=== PATIENT | female | born 1945 | race Caucasian/White ===

== ENCOUNTER 2016-06-26 12:42 | Inpatient (IN) | payer OTHER ==
[~2016-06-26] VITALS: Ht 160 cm; Wt 65.9 kg
[~2016-06-26 12:42] MED LIST: ASPIRIN81 M1; B-121000 MC2 PO; CARDIA XT; CARDIZEM CD,CA240 MG PO; CLOPIDOGREL75 MG PO; CYANOCOBAL1000 MCG/2 IM; DAILY VALUE1 EACH PO; FISH OIL CONC1 EACH PO; FOLIC ACID0.4 MG PO; MVI; PLAVIX75 MG PO; RED YEAST RICE600 M1 PO; RENOVA 0.02% CR40 GM TP; RESVERATROL50 MG PO; ST. JOSEPH ASPI81 MG PO; TARCEVA150 MG PO; TRIAMTERENE-HC1 EACH PO; ZETIA10 MG; ZOLOFT50 MG PO
[2016-06-26 13:38] LABS: HEMATOCRIT 39.2 % (36.0-46.0); MCH 27.7 PG (29.0-34.0); MCHC 32.1 G/DL (30.0-36.0); MCV 86.2 FL (83-99); MEAN PLAT.VOLUME 10.6 uM^3 (9.5-12.4); PLATELET COUNT 226 K/uL (156-360); RBC DIS.WIDTH-CV 13.2 % (11.8-14.6); RBC DIS.WIDTH-SD 41.2 % (39-53); RED BLOOD COUNT 4.55 M/uL (3.80-5.20); WHITE BLOOD COUNT 6.5 K/uL (4.1-10.2)
[2016-06-26 13:42] LABS: CARBON DIOXIDE (BICARBONATE) 31.2 MEQ/L (20-31)
[2016-06-26 13:51] LABS: CHLORIDE 102 mEq/L (99-109); POTASSIUM 3.7 mEq/L (3.7-5.4); SODIUM 140 mEq/L (136-147)
[2016-06-26 13:53] LABS: GLUCOSE 118 mg/dL (70-99)
[2016-06-26 13:54] LABS: ANION GAP 12 MEQ/L (2-14)
[2016-06-26 13:57] LABS: GFR ESTIMATE (CALCULATED) > 59 mL/min/
[2016-06-26 13:58] LABS: UREA NITROGEN (BUN) 12 mg/dL (9-23)
[2016-06-26 14:05] LABS: TROP-I INTERPRETATION NEGATIVE; TROPONIN-I < 0.01 ng/mL (0.0-0.30)
[2016-06-26] MEDS ORDERED: FISH OIL300 MG PO (16:42)
[2016-06-26] MEDS ORDERED: TAGRISSO80 MG PO (16:44)
[2016-06-26] MEDS ORDERED: FLORASTOR250 MG PO (16:45)
[2016-06-26] MEDS ORDERED: FINACEA 15% GEL50 GM TP (16:46)
[2016-06-26] MEDS ORDERED: RED YEAST RICE600 MG PO (16:46)
[2016-06-26] MEDS ORDERED: RESVERATROL250 MG PO (16:46)
[2016-06-26 18:09] VITALS: BP 149/63
[2016-06-26 21:45] LABS: METH RESISTANT S AUREUS PCR NEGATIVE (NEGATIVE)
[2016-06-26 21:47] LABS: PROBE CHECK PASS; SPECIMEN PROCESSING CONTROL PASS
[2016-06-26 23:27] VITALS: BP 151/67
[2016-06-27 04:04] VITALS: BP 143/74
[2016-06-27 06:44] LABS: BASOPHIL COUNT 0.1 K/uL (0-0.1); EOSINOPHIL (%) 5.5 % (0-5); EOSINOPHIL COUNT 0.3 K/uL (0-0.3); HEMATOCRIT 33.5 % (36.0-46.0); IMMATURE GRANULOCYTE (%) 0.3 % (0.0-0.7); INSTRUMENT ABS NEUTROPHIL CT 3.8 K/uL; LYMPHOCYTE COUNT 1.2 K/uL (1.0-2.8); MCHC 31.9 G/DL (30.0-36.0); MCV 87.7 FL (83-99); MEAN PLAT.VOLUME 10.7 uM^3 (9.5-12.4); MONOCYTE (%) 12.9 % (3-12); MONOCYTE COUNT 0.8 K/uL (0-0.8); NEUTROPHIL (%) 60.7 % (45-76); NEUTROPHIL COUNT 3.8 K/uL (1.8-6.4); PLATELET COUNT 196 K/uL (156-360); RBC DIS.WIDTH-CV 13.6 % (11.8-14.6); RBC DIS.WIDTH-SD 43.4 % (39-53); RED BLOOD COUNT 3.82 M/uL (3.80-5.20); WHITE BLOOD COUNT 6.2 K/uL (4.1-10.2)
[2016-06-27 07:38] VITALS: BP 125/65
[2016-06-27 11:37] VITALS: BP 137/67
[2016-06-27 16:58] VITALS: BP 136/67
[2016-06-27 19:34] VITALS: BP 133/65
[2016-06-27 23:45] VITALS: BP 116/57
[2016-06-28 03:36] VITALS: BP 124/62
[2016-06-28 06:54] LABS: ANION GAP 9 MEQ/L (2-14); CHLORIDE 105 MEQ/L (99-109); GFR ESTIMATE (CALCULATED) > 59 mL/min/; GLUCOSE 100 mg/dL (70-99); POTASSIUM 3.9 MEQ/L (3.7-5.4); SAMPLE HEMOLYSIS CHECK 0; SAMPLE ICTERIC CHECK 0; SAMPLE LIPEMIA CHECK 0; SODIUM 142 MEQ/L (136-147); UREA NITROGEN (BUN) 15 mg/dL (9-23)
[2016-06-28 07:30] VITALS: BP 143/64
[2016-06-28 11:22] VITALS: BP 126/58
[2016-06-28] MEDS ORDERED: AMOX TR-K CLV1 EAC3 PO (15:20)
[2016-06-28] MEDS ORDERED: AERONEB GO NEB1 EACH MC (15:21)
[2016-06-28] MEDS ORDERED: PROVENTIL,2.5 MG/3 M IH (15:22)
[2016-06-28 16:28] VITALS: BP 140/63
[2016-06-28 19:41] VITALS: BP 148/66
[2016-06-28 23:47] VITALS: BP 140/67
[2016-06-29 04:03] VITALS: BP 141/65
[2016-06-29 07:39] VITALS: BP 137/65
[2016-06-29 11:15] VITALS: BP 147/67
[2016-06-29] MEDS ORDERED: AMOX TR-K CLV1 EAC3 PO (11:30)
== END 2016-06-29 14:04 | disposition home or self-care (01) | DRG 194 ==
LOC: EME 12:42 → 5SOUTH 16:21 → EDOF 16:21 → 5SOUTH 17:36
PROVIDERS: Emergency Medicine; Nurse Practitioner Family; Physician Assistant Medical
DX: J18.9 Pneumonia, unspecified organism (principal); R09.02 Hypoxemia; C34.31 Malignant neoplasm of lower lobe, right bronchus or lung; Y95 Nosocomial condition; I10 Essential (primary) hypertension; I25.10 Atherosclerotic heart disease of native coronary artery without angina pectoris; F32.9 Major depressive disorder, single episode, unspecified; Z79.82 Long term (current) use of aspirin; Z79.02 Long term (current) use of antithrombotics/antiplatelets
CPT/HCPCS: 71275; 80048; 82803; 83605; 83880; 84484; 85025; 85027; 87040; 87493; 87641; 93005; 94640; 94640 76; 94760; 94799; 99202; 99281; 99285; J1650; J2543; J3370; J7050

== ENCOUNTER 2017-03-24 11:17 | Inpatient (IN) | payer OTHER ==
[~2017-03-24] VITALS: Ht 160 cm; Wt 60.2 kg
[~2017-03-24 11:17] MED LIST changes: +AERONEB GO NEB1 EACH MC; +AMOX TR-K CLV1 EAC3 PO; +FINACEA 15% GEL50 GM TP; +FISH OIL 1,0001 EAC7 PO; +FLORASTOR250 MG PO; +PROVENTIL,2.5 MG/3 M IH; +RED YEAST RICE600 MG PO; +RESVERATROL250 MG PO
[2017-03-24 12:11] LABS: HEMATOCRIT 38.8 % (36.0-46.0); MCH 28.4 PG (29.0-34.0); MCHC 33.5 G/DL (30.0-36.0); PLATELET COUNT 403 K/uL (156-360); RBC DIS.WIDTH-CV 15.3 % (11.8-14.6); RBC DIS.WIDTH-SD 46.9 % (39-53); RED BLOOD COUNT 4.58 M/uL (3.80-5.20); WHITE BLOOD COUNT 11.7 K/uL (4.1-10.2)
[2017-03-24 12:15] LABS: MCV 84.7 FL (83-99)
[2017-03-24 12:18] LABS: ALBUMIN 4.1 g/dL (3.2-4.8); CHLORIDE 95 mEq/L (99-109); SODIUM 137 mEq/L (136-147)
[2017-03-24 12:20] LABS: GLUCOSE 160 mg/dL (70-99)
[2017-03-24 12:21] LABS: TOTAL PROTEIN 8.3 g/dL (6.4-8.3)
[2017-03-24 12:22] LABS: TOTAL BILIRUBIN 3.1 mg/dL (0.0-1.0)
[2017-03-24 12:23] LABS: POTASSIUM 2.3 mEq/L (3.7-5.4)
[2017-03-24 12:24] LABS: ALKALINE PHOSPHATASE 108 IU/L (3-129); GFR ESTIMATE (CALCULATED) 58 mL/min/
[2017-03-24 12:26] LABS: AST (GOT) 29 IU/L (2-34)
[2017-03-24 12:27] LABS: ALT (GPT) 20 IU/L (3-49); LIPASE 18 U/L (1.0-51.0)
[2017-03-24 12:50] LABS: UREA NITROGEN (BUN) 21 mg/dL (9-23)
[2017-03-24] MEDS ORDERED: VITAMIN D31000 UNI2 PO (15:11)
[2017-03-24] MEDS ORDERED: PROMETHAZINE HC25 M1 PO (15:12)
[2017-03-24] MEDS ORDERED: ZOLPIDEM TARTRA10 MG PO (15:12)
[2017-03-24 15:58] LABS: MAGNESIUM 1.3 mg/dL (1.3-2.7)
[2017-03-24 18:09] VITALS: BP 132/63
[2017-03-24 19:16] LABS: TROP-I INTERPRETATION NEGATIVE; TROPONIN-I 0.01 ng/mL (0.0-0.30)
[2017-03-24 23:45] VITALS: BP 123/60
[2017-03-25 01:00] LABS: TROP-I INTERPRETATION NEGATIVE; TROPONIN-I 0.02 ng/mL (0.0-0.30)
[2017-03-25 07:01] LABS: HEMATOCRIT 29.6 % (36.0-46.0); MCH 27.5 PG (29.0-34.0); MCHC 32.4 G/DL (30.0-36.0); MCV 84.8 FL (83-99); PLATELET COUNT 324 K/uL (156-360); RBC DIS.WIDTH-CV 15.4 % (11.8-14.6); RBC DIS.WIDTH-SD 47.4 % (39-53); WHITE BLOOD COUNT 10.4 K/uL (4.1-10.2)
[2017-03-25 07:06] LABS: HEMOGLOBIN 9.6 G/DL (11.9-15.5); RED BLOOD COUNT 3.49 M/uL (3.80-5.20)
[2017-03-25 07:14] LABS: ALBUMIN 2.8 G/DL (3.2-4.8); ALKALINE PHOSPHATASE 69 IU/L (3-129); ALT (GPT) 12 IU/L (3-49); AST (GOT) 19 IU/L (2-34); CHLORIDE 102 MEQ/L (99-109); CREATININE 0.6 MG/DL (0.6-1.3); GFR ESTIMATE (CALCULATED) > 59 mL/min/; GLUCOSE 181 mg/dL (70-99); POTASSIUM 2.7 MEQ/L (3.7-5.4); SODIUM 137 MEQ/L (136-147); TOTAL BILIRUBIN 2.2 MG/DL (0.0-1.0); TOTAL PROTEIN 5.1 G/DL (6.4-8.3); UREA NITROGEN (BUN) 14 mg/dL (9-23)
[2017-03-25 07:52] VITALS: BP 126/60
[2017-03-25 10:26] LABS: APPEARANCE CLEAR ((CLEAR)); BILIRUBIN NEGATIVE; BLOOD SMALL; COLOR YELLOW ((YELLOW)); GLUCOSE (STRIP) NEGATIVE; KETONES NEGATIVE; LEUKOCYTES NEGATIVE; NITRITE NEGATIVE; PROTEIN (STRIP) NEGATIVE; SPECIFIC GRAVITY 1.013 (1.000-1.030); UROBILINOGEN 0.2 MG/DL (0.2-1.0)
[2017-03-25 10:38] LABS: BACTERIA 2+ /HPF; EPITHELIAL CELLS RARE /HPF; MUCUS TRACE /LPF; RED BLOOD CELLS 0-5 /HPF (0-5); UCUL ADDED? YES; WHITE BLOOD CELLS 0-5 /HPF (0-5)
[2017-03-25 11:05] LABS: C DIFF TOXIN NEGATIVE (NEGATIVE)
[2017-03-25 11:45] VITALS: BP 127/59
[2017-03-25 15:46] VITALS: BP 130/60
[2017-03-25 19:45] VITALS: BP 96/47
[2017-03-25 23:50] VITALS: BP 115/58
[2017-03-26 06:45] LABS: BASOPHIL (%) 0.3 % (0-1); EOSINOPHIL (%) 2.9 % (0-5); EOSINOPHIL COUNT 0.3 K/uL (0-0.3); HEMATOCRIT 27.7 % (36.0-46.0); HEMOGLOBIN 8.9 G/DL (11.9-15.5); IMMATURE GRANULOCYTE (%) 0.9 % (0.0-0.7); LYMPHOCYTE (%) 4.5 % (15-42); LYMPHOCYTE COUNT 0.5 K/uL (1.0-2.8); MCH 27.7 PG (29.0-34.0); MCHC 32.1 G/DL (30.0-36.0); MCV 86.3 FL (83-99); MONOCYTE (%) 15.1 % (3-12); MONOCYTE COUNT 1.5 K/uL (0-0.8); NEUTROPHIL (%) 76.3 % (45-76); NEUTROPHIL COUNT 7.6 K/uL (1.8-6.4); PLATELET COUNT 335 K/uL (156-360); RBC DIS.WIDTH-CV 15.9 % (11.8-14.6); RBC DIS.WIDTH-SD 50.4 % (39-53); RED BLOOD COUNT 3.21 M/uL (3.80-5.20); WHITE BLOOD COUNT 9.9 K/uL (4.1-10.2)
[2017-03-26 07:22] LABS: ALBUMIN 2.9 G/DL (3.2-4.8); ALKALINE PHOSPHATASE 75 IU/L (3-129); ALT (GPT) 12 IU/L (3-49); AST (GOT) 15 IU/L (2-34); CHLORIDE 107 MEQ/L (99-109); CREATININE 0.6 MG/DL (0.6-1.3); GFR ESTIMATE (CALCULATED) > 59 mL/min/; MAGNESIUM 1.2 mg/dl (1.3-2.7); SODIUM 137 MEQ/L (136-147); TOTAL BILIRUBIN 2.2 MG/DL (0.0-1.0); TOTAL PROTEIN 5.2 G/DL (6.4-8.3); UREA NITROGEN (BUN) 11 mg/dL (9-23)
[2017-03-26 07:43] LABS: GLUCOSE 117 mg/dL (70-99); POTASSIUM 3.3 MEQ/L (3.7-5.4)
[2017-03-26 08:27] VITALS: BP 115/59
[2017-03-26 16:26] VITALS: BP 109/54
[2017-03-26 20:00] VITALS: BP 138/63
[2017-03-26 23:22] VITALS: BP 127/62
[2017-03-27 04:15] VITALS: BP 116/59
[2017-03-27 07:17] LABS: HEMATOCRIT 27.8 % (36.0-46.0); HEMOGLOBIN 8.8 G/DL (11.9-15.5); MCH 27.7 PG (29.0-34.0); MCHC 31.7 G/DL (30.0-36.0); MCV 87.4 FL (83-99); PLATELET COUNT 348 K/uL (156-360); RBC DIS.WIDTH-CV 15.9 % (11.8-14.6); RBC DIS.WIDTH-SD 51.8 % (39-53); RED BLOOD COUNT 3.18 M/uL (3.80-5.20); WHITE BLOOD COUNT 7.1 K/uL (4.1-10.2)
[2017-03-27 07:39] LABS: CHLORIDE 105 MEQ/L (99-109); CREATININE 0.6 MG/DL (0.6-1.3); GFR ESTIMATE (CALCULATED) > 59 mL/min/; GLUCOSE 103 mg/dL (70-99); MAGNESIUM 1.2 mg/dl (1.3-2.7); POTASSIUM 3.6 MEQ/L (3.7-5.4); SODIUM 138 MEQ/L (136-147); UREA NITROGEN (BUN) 14 mg/dL (9-23)
[2017-03-27 08:22] VITALS: BP 122/58
[2017-03-27] MEDS ORDERED: MAG-OXIDE400 MG PO (10:43)
[2017-03-27] MEDS ORDERED: LOPERAMIDE2 MG PO (10:43)
== END 2017-03-27 12:20 | disposition home or self-care (01) | DRG 391 ==
LOC: EME 11:17 → EDOF 15:01 → 5EAST 15:01 → ENRESERV 15:02 → 5EAST 17:53
PROVIDERS: Hospitalist; Internal Medicine; Physician Assistant
DX: R11.2 Nausea with vomiting, unspecified (principal); E87.6 Hypokalemia; E80.6 Other disorders of bilirubin metabolism; J10.1 Influenza due to other identified influenza virus with other respiratory manifestations; J10.08 Influenza due to other identified influenza virus with other specified pneumonia; E86.0 Dehydration; I10 Essential (primary) hypertension; I25.10 Atherosclerotic heart disease of native coronary artery without angina pectoris; C34.90 Malignant neoplasm of unspecified part of unspecified bronchus or lung; E83.42 Hypomagnesemia; Z79.82 Long term (current) use of aspirin; C79.70 Secondary malignant neoplasm of unspecified adrenal gland; R19.7 Diarrhea, unspecified; Z90.49 Acquired absence of other specified parts of digestive tract; Z95.5 Presence of coronary angioplasty implant and graft; Z90.710 Acquired absence of both cervix and uterus; Z79.02 Long term (current) use of antithrombotics/antiplatelets; R17 Unspecified jaundice; Z82.5 Family history of asthma and other chronic lower respiratory diseases
CPT/HCPCS: 76705; 80048; 80053; 81003; 83690; 83735; 84484; 85025; 85027; 87086; 87177; 87493; 87506; 93005; 99281; 99285; J1650; J2405; J3475; J3480; J7040; J7042